=== PATIENT | male | born 1955 | race Caucasian/White ===

== ENCOUNTER 2016-12-06 07:48 | Day surgery (SDC) | payer BC ==
[~2016-12-06 07:48] MED LIST: RINGERS SOLUTION,LACTATED 1,000 ML IV PRN
--- OUTSIDE RECORDS SUMMARY | 2016-12-06 07:53 | XMS REPORT | Continuity of Care Document ---
:1955 Author Organization [employer] [facility] [place] [address] Care Team Providers Name Role Phone Provider, None Per Patient Primary Care Provider Unavailable Source Comments This disclosure is being made pursuant to the [employer] program and maynot contain all information available regarding this patient.[employer] Active Allergies and Adverse Reactions Not on File Current Medications Be aware that medications may not be up to date as of this document. Alwaysverify current medications with the patient. Not on file Active Problems Not on file Immunizations Name Dates Previously Given Next Due Influenza, Inactivated, Trivalent, Intradermal 06/22/2015 Social History Tobacco Use Types Packs/Day Years Used Date Never Assessed Plan of Care Health Maintenance Due Date Last Done Comments Hepatitis C Screening 1973 Tetanus/Pertussis (1 - Tdap) 1974 Colonoscopy 2005 Well Adult Visit 2005 Zoster Vaccine 60+ 2015 Influenza Immunization (#1) 2016 06/22/2015 Results from Last 3 Months Not on file
--- OUTSIDE RECORDS SUMMARY | 2016-12-06 07:54 | XMS REPORT | Continuity of Care Document ---
:1955 Author Organization [facility] ([facility]) Address [address] [place] [address] Phone [phone] Care Team Providers Name Role Phone David Junior Primary Care Provider [phone] Source Comments This disclosure is being made pursuant to the Care Everywhere program, applicable federal and state laws, and may not contain all informaitonavailable regarding this patient.[facility] ([facility]) Active Allergies and Adverse Reactions Allergen Noted Date Severity Reactions Comments Monosodium Glutamate 07/21/2015 Unknown Phenobarbital 07/21/2015 Unknown Current Medications Prescription Sig. Disp. Refills Start Date End Date Status atorvastatin 10 mg tablet 1 tablet daily 1 07/05/2015 Active escitalopram oxalate 10 1 tablet daily 1 06/12/2015 Active mg tablet tamsulosin 0.4 mg capsule Take 0.4 mg by Active mouth daily multivitamin tablet Take 1 tablet by Active mouth daily. GLUC HCL/GLUC Active [id number] (GLUCOSAMINE COMPLEX PO) Active Problems Problem Noted Date Peyronie's disease 07/22/2015 Social History Tobacco Use Types Packs/Day Years Used Date Never Smoker Smokeless Tobacco: Never Used Tobacco Cessation:Counseling Given: Yes Comments: Alcohol Use Drinks/Week oz/Week Comments Yes 4 Glasses of wine 3-4 drinks a week 3 Cans of beer Last Filed Vital Signs Vital Sign Reading Time Taken Blood Pressure 112/72 01/10/2016 2:49 PM CDT Pulse 64 01/10/2016 2:49 PM CDT Temperature 36.2 C (97.2 F) 01/10/2016 2:49 PM CDT Respiratory Rate 12 11/21/2015 2:19 PM CDT Height 1.829 m (6' 0.01") 11/21/2015 2:19 PM CDT Weight 97.6 kg (215 lb 2.7 oz) 11/21/2015 2:19 PM CDT Body Mass Index 29.18 11/21/2015 2:19 PM CDT Oxygen Saturation 96% 10/14/2015 8:00 AM [employer] Plan of Care Health Maintenance Due Date Last Done Comments HCV Screening 1955 Hepatitis B Vaccine (1 of 3 - Primary Series) 1955 Tdap Vaccine 1966 Lipid Disorder Screening 1973 Td Vaccine 1973 Colonoscopy 06/25/2005 Prostate Cancer Screening 2005 Zoster Vaccine 2015 Influenza Vaccine: Seasonal (#1) 04/01/2016 Results from Last 3 Months Not on file
[2016-12-06] MEDS ORDERED: RINGERS SOLUTION,LACTATED 1,000 ML IV ONE (08:48)
[2016-12-06 11:18] VITALS: BP 107/65
== END 2016-12-06 07:49 | disposition home or self-care (01) ==
LOC: AMB 07:48
PROVIDERS: ATTEND Specialist
PROC: 0DJD8ZZ Inspection of Lower Intestinal Tract, Via Natural or Artificial Opening Endoscopic (ICD-10-PCS; principal; 2016-12-06 08:30)
DX: Z12.11 Encounter for screening for malignant neoplasm of colon (principal); K57.30 Diverticulosis of large intestine without perforation or abscess without bleeding; I25.10 Atherosclerotic heart disease of native coronary artery without angina pectoris; N40.0 Benign prostatic hyperplasia without lower urinary tract symptoms; Z68.28 Body mass index [BMI] 28.0-28.9, adult